=== PATIENT | female | born 1960 | race African-American/Black ===

== ENCOUNTER 2020-03-30 13:42 | Inpatient (IN) | payer OTHER ==
[~2020-03-30] VITALS: Ht 160 cm; Wt 77.0 kg
[2020-03-30] MEDS ORDERED: ZINC SULFATE 220mg CAP or TAB PO ONE (14:00)
[2020-03-30] MEDS ORDERED: hydrOXYchloroQUINE SULFATE 200 MG TAB PO ONE (14:00)
[2020-03-30] MEDS ORDERED: ASCORBIC ACID 500 MG TAB PO ONE (14:00)
[2020-03-30] MEDS ORDERED: AZITHROMYCIN 500MG/ 250ML 250 ML IV ONE (14:00)
[2020-03-30] MEDS ORDERED: methylPREDNISolone SOD SUCC 125 MG/2 ML VL IV ONE (14:00)
[2020-03-30 14:27] LABS: Basophils # (auto) 0.1 10 ^3/uL (0-0.2); Basophils % (auto) 0.7 % (0.0-2.0); Eosinophils # (auto) 0.1 10 ^3/uL (0-0.8); Eosinophils % (auto) 0.9 % (0.0-7.0); Hematocrit 39.3 % (36.0-46.0); Lymphocytes % (auto) 25.1 % (10.0-50.0); Mean Corpuscular Volume 99.8 fL (80.0-100.0); Monocytes # (auto) 0.4 10 ^3/uL (0-1.3); Neutrophils # (auto) 5.4 10 ^3/uL (1.6-8.6); Neutrophils % (auto) 68.3 % (37.0-80.0); Platelet Count (auto) 263 10^3/uL (140-450); Red Blood Cells 3.94 10^6/uL (4.0-5.20); Red Cell Distribution Width 12.5 % (11.8-14.3); White Blood Cell 7.9 10^3/uL (4.4-10.8)
[2020-03-30 14:52] LABS: Alanine Aminotransferase 80 U/L (13-56); Albumin 3.9 g/dL (3.4-5.0); Anion Gap 4 (5-15); Aspartate Aminotransferase 50 U/L (15-37); BUN/Creatinine Ratio 10.7; Blood Urea Nitrogen 8 mg/dL (7-18); Calcium 9.2 mg/dL (8.5-10.1); Carbon Dioxide 26 mmol/L (21-32); Chloride 111 mmol/L (98-107); GFR African American 101 mL/min; GFR Non-African American 83 mL/min; Glucose 116 mg/dL (74-106); Potassium 3.7 mmol/L (3.5-5.1); Sodium 141 mmol/L (136-145)
[2020-03-30 14:55] LABS: Alkaline Phosphatase 72 U/L (45-117); Bilirubin, Total 0.6 mg/dL (0.2-1.0); Total Protein 8.1 g/dL (6.4-8.2)
[2020-03-30] MEDS ORDERED: ENOXAPARIN SOD 100 MG/1 ML SYRINGE SC ONE (15:15)
[2020-03-30] MEDS ORDERED: PANTOPRAZOLE 40 MG/10 ML VIAL INJ IV ONE (15:15)
[2020-03-30 15:31] LABS: CRP High Sensitivity 0.06 mg/dL (< 0.3)
[2020-03-30] MEDS ORDERED: METOPROLOL TARTRATE 1MG/1ML-5ML VIAL IV ONE (17:15)
[2020-03-30] MEDS ORDERED: ACETAMINOPHEN 500 MG TAB PO PRN (17:45)
[2020-03-30] MEDS ORDERED: LOSARTAN POTASSIUM 25 MG TAB PO ONE (17:45)
[2020-03-30] MEDS ORDERED: MORPHINE SULF INJ 2 MG/ML SYRINGE 1ML IV PRN ×2 (18:00)
[2020-03-30] MEDS ORDERED: POTASSIUM CHL 20 Meq TABLET PO ONE (18:00)
[2020-03-30] MEDS ORDERED: TEMAZEPAM 15 MG CAP PO PRN (18:00)
[2020-03-30] MEDS ORDERED: ONDANSETRON HCL 4 MG/2 ML VIAL IV PRN (18:00)
[2020-03-30] MEDS ORDERED: NITROGLYCERIN 0.4 MG SL TAB SL PRN (18:00)
[2020-03-30] MEDS ORDERED: HYDROcodone-ACET 5/325MG TAB PO PRN (18:00)
[2020-03-30] MEDS ORDERED: FUROSEMIDE 40 MG/4 ML VIAL IV ONE (18:00)
[2020-03-30 18:19] LABS: INR 0.98 (0.9-1.15); Partial Thromboplastin Time 25.2 sec (23.64-32.05)
[2020-03-30 18:56] LABS: Urine Bacteria NONE SEEN /hpf (None Seen); Urine Blood Negative /uL (Negative); Urine Hyaline Cast FEW /lpf (0 - 2); Urine Specific Gravity 1.013 (1.001-1.035); Urine WBC 10 /hpf (0 - 5)
[2020-03-30] MEDS ORDERED: ALBUAER3 IN (19:03)
[2020-03-30 19:09] LABS: Alcohol, Urine < 3.0 mg/dL (0-10); Amphetamine Screen, Urine NEGATIVE (NEGATIVE); Barbiturate Scree,Urine NEGATIVE (NEGATIVE); Benzodiazephine Screen, Urine NEGATIVE (NEGATIVE); Cannabinoid Screen, Urine NEGATIVE (NEGATIVE); Cocaine Screen, Urine NEGATIVE (NEGATIVE); Opiate Scree,Urine NEGATIVE (NEGATIVE); Phencyclidine Screen, Urine NEGATIVE (NEGATIVE)
--- NOTE | 2020-03-30 21:54 | NUR ---
Telemetry admit from ER [place] admitted to Telemetry unit after NO SBAR WAS received. Patient oriented to JODI aguero RN, unit, room, bed, and unit policies regarding patient care and visiting hours. Patient now on continuous telemetry monitoring, tele box # 66 and telemetry reading on arrival to unit is sinus rhythm 75 bpm. Patient weighed by bedscale and encouraged to call if they need something. All questions and concerns addressed, patient verbalized understanding.
[2020-03-30] MEDS ORDERED: BUDESONIDE (INHALATION) 180 MCG IH IN SCH (22:00)
[2020-03-30] MEDS ORDERED: ALBUTEROL SULF HFA 90MCG INH 200DOSE IN SCH (22:00)
[2020-03-30] MEDS: SODIUM CHLOR 0.9% PF (SALINE LOCK) 10ML VIAL/SYR IV SCH (22:16)
[2020-03-30] MEDS: DOXYCYCLINE 100 MG TAB/CAP PO SCH (22:16)
[2020-03-30] MEDS: ENOXAPARIN SOD 80 MG/0.8ML SYRINGE SC SCH (22:16)
[2020-03-30] MEDS: ACETAMINOPHEN 325 MG TAB PO PRN (22:17)
--- NOTE | 2020-03-30 22:50 | NUR ---
MRSA Nares collected and sent to lab via bullet system.
[2020-03-31 05:20] VITALS: BP 139/76
[2020-03-31] MEDS: SODIUM CHLOR 0.9% PF (SALINE LOCK) 10ML VIAL/SYR IV SCH ×3 (05:46→22:00)
--- NOTE | 2020-03-31 07:28 | NUR ---
Report given to Lori BROOKS Patient is resting in bed, no S/S of pain or distress noted. Call light is within reach.
[2020-03-31 07:43] LABS: Basophils # (auto) 0 10 ^3/uL (0-0.2); Basophils % (auto) 0.1 % (0.0-2.0); Eosinophils # (auto) 0 10 ^3/uL (0-0.8); Hematocrit 38.7 % (36.0-46.0); Hemoglobin 12.9 g/dL (12.2-16.2); Lymphocytes # (auto) 1.7 10 ^3/uL (0.4-5.4); Lymphocytes % (auto) 13.4 % (10.0-50.0); Mean Corpuscular Hgb Conc. 33.3 g/dL (32.0-36.0); Mean Corpuscular Volume 99.1 fL (80.0-100.0); Monocytes # (auto) 0.3 10 ^3/uL (0-1.3); Monocytes % (auto) 2.4 % (0.0-12.0); Neutrophils # (auto) 10.9 10 ^3/uL (1.6-8.6); Neutrophils % (auto) 84.1 % (37.0-80.0); Platelet Count (auto) 266 10^3/uL (140-450); Red Blood Cells 3.91 10^6/uL (4.0-5.20); Red Cell Distribution Width 12.7 % (11.8-14.3)
[2020-03-31 08:12] LABS: Albumin 3.8 g/dL (3.4-5.0); BUN/Creatinine Ratio 14.5; Calcium 9.4 mg/dL (8.5-10.1)
--- NOTE | 2020-03-31 08:14 | NUR ---
OPENING SHIFT NOTE: PATIENT AWAKE RESTING IN BED. A/OX4, RESPIRATIONS EVEN AND UNLABORED. UPDATED ON PLAN OF CARE AND ADDRESSED CONCERNS. CALL LIGHT CLEANED AFTER BEING FOUND ON FLOOR, PLACED WITHIN REACH, FALL PRECAUTIONS IN PLACE. WILL CONTINUE TO MONITOR.
[2020-03-31 08:16] LABS: Bilirubin, Total 0.7 mg/dL (0.2-1.0); Total Protein 7.9 g/dL (6.4-8.2)
[2020-03-31 08:58] VITALS: BP 154/77
[2020-03-31] MEDS: DOXYCYCLINE 100 MG TAB/CAP PO SCH ×2 (09:42→23:10)
[2020-03-31] MEDS: ZINC SULFATE 220mg CAP or TAB PO SCH (09:42)
[2020-03-31] MEDS: CHOLECALCIFEROL (VITD3) 2,000 UNIT CAP PO SCH (09:42)
[2020-03-31] MEDS: LOSARTAN POTASSIUM 50 MG TAB PO SCH (09:42)
[2020-03-31] MEDS: ASCORBIC ACID 1,000 MG TAB PO SCH (09:42)
[2020-03-31] MEDS: ENOXAPARIN SOD 80 MG/0.8ML SYRINGE SC SCH ×2 (09:43→23:10)
[2020-03-31] MEDS: ACETAMINOPHEN 325 MG TAB PO PRN ×2 (09:43→23:12)
[2020-03-31 13:00] VITALS: BP 121/60
--- NOTE | 2020-03-31 15:37 | NUR ---
MD JANICE VALADEZ.
--- NOTE | 2020-03-31 15:58 | NUR ---
12 LEAD EKG DONE AND PLACED IN THE HARD CHART. MD CAMACHO MADE AWARE OF NSR EKG.
[2020-03-31 17:00] VITALS: BP 123/60
[2020-03-31] MEDS ORDERED: ALBUTEROL SULF 2.5 MG/0.5ML(0.5%) NEB SOLN NEB PRN (17:30)
--- NOTE | 2020-03-31 18:54 | NUR ---
CARE ENDORSED TO NOC RN.
[2020-03-31 22:00] VITALS: BP 117/67
--- NOTE | 2020-03-31 23:10 | NUR ---
Pt c/o pain in LAC at PIV site /10 and c/o swelling. ALONZO does appear larger then MARGARET. Color good to L arm; upper arm cool but lower arm warm. Radial pulse regular. Cap refill <3 secs above and below AC. Tylenol given for pain. Will cont to observe.
[2020-04-01 02:47] VITALS: BP 117/67
--- NOTE | 2020-04-01 02:56 | NUR ---
Pt sleeping soundly, snoring softly. Color to L arm still good though still appears swollen.
[2020-04-01 05:00] VITALS: BP 107/57
[2020-04-01] MEDS: SODIUM CHLOR 0.9% PF (SALINE LOCK) 10ML VIAL/SYR IV SCH ×2 (06:00→14:00)
--- NOTE | 2020-04-01 07:49 | NUR ---
Opening Note Assumed pt care from NOC RN. PT is a/ox4 with no s/s of distress or SOB. Pt is currently sitting upright in bed eating breakfast with no complaints at this time. Discussed POC with pt; pt verbalized understanding. Safety measures maintained with call light within reach, bed in lowest position and side rails up. Will continue to monitor for changes.
[2020-04-01] MEDS: ZINC SULFATE 220mg CAP or TAB PO SCH (08:58)
[2020-04-01] MEDS: CHOLECALCIFEROL (VITD3) 2,000 UNIT CAP PO SCH (08:58)
[2020-04-01] MEDS: ASCORBIC ACID 1,000 MG TAB PO SCH (08:58)
[2020-04-01 09:00] VITALS: BP 120/74
[2020-04-01] MEDS: ENOXAPARIN SOD 80 MG/0.8ML SYRINGE SC SCH (09:31)
[2020-04-01] MEDS: LOSARTAN POTASSIUM 50 MG TAB PO SCH (09:32)
[2020-04-01] MEDS: DOXYCYCLINE 100 MG TAB/CAP PO SCH (09:33)
[2020-04-01] MEDS ORDERED: amLODIPine BESYLATE 5 MG TAB PO SCH (10:00)
--- NOTE | 2020-04-01 10:57 | NUR ---
Dr Ulloa at Bedside MD to see pt. Plans to d/c pt home today. Will implement and continue to monitor.
[2020-04-01 13:00] VITALS: BP 122/64
[2020-04-01 14:16] VITALS: BP 122/64
--- NOTE | 2020-04-01 14:51 | NUR ---
IV and Tele 66 D/C'ed IV to pt's L AC d/c'ed. Catheter was removed fully intact. Site is asymptomatic. Pressure was applied to site for 3 minutes with gauze and then wrapped in coban. Pt instructed to keep dressing on for 30 minutes; pt verbalized understanding. Tele 66 removed and sent back to ICU Staff made aware.
--- NOTE | 2020-04-01 15:28 | NUR ---
Pt D/C'ed off Unit Pt ambulated off unit. Pt is a/ox4 with no s/s of distress or SOB. Pt provided all information regarding care, prescriptions, education and all questions were answered. IV and tele box was d/c'ed.
== END 2020-04-01 15:27 | disposition home or self-care (01) | DRG 304 ==
LOC: ER 13:42 → TELE 13:43 → TELE-WESTW 21:54
PROVIDERS: ADMIT Internal Medicine; ATTEND Internal Medicine
DX: I16.0 Hypertensive urgency (principal); J18.9 Pneumonia, unspecified organism; I10 Essential (primary) hypertension; J45.909 Unspecified asthma, uncomplicated; Z80.9 Family history of malignant neoplasm, unspecified; Z82.49 Family history of ischemic heart disease and other diseases of the circulatory system; Z20.828 Contact with and (suspected) exposure to other viral communicable diseases; R07.89 Other chest pain
CPT/HCPCS: 36415; 71045; 80053; 80307; 81001; 82728; 83036; 83615; 83735; 84443; 84484; 85025; 85379; 85610; 85730; 86141; 87081; 93005; 93306; 96365; 96372; 96375; C9113; G0378